=== PATIENT | female | born 1960 | race Caucasian/White ===

== ENCOUNTER 2017-09-15 10:52 | Emergency (ER) | payer MEDICAID ==
[~2017-09-15] VITALS: Ht 177.8 cm; Wt 70.0 kg
[~2017-09-15 10:52] MED LIST: HYDR-3965 PO
[2017-09-15] MEDS ORDERED: PENI500T2 PO (12:08)
[2017-09-15 12:26] VITALS: BP 131/71
== END 2017-09-15 12:27 | disposition home or self-care (01) ==
LOC: ER 10:52
DX: K08.89 Other specified disorders of teeth and supporting structures (principal); Z88.6 Allergy status to analgesic agent; Z88.1 Allergy status to other antibiotic agents
CPT/HCPCS: 99283

== ENCOUNTER 2017-11-10 08:20 | Emergency (ER) | payer MEDICAID ==
[~2017-11-10] VITALS: Ht 180.3 cm; Wt 70.0 kg
[2017-11-10] MEDS ORDERED: AMOX500C2 PO (09:47)
[2017-11-10 09:58] VITALS: BP 143/88
== END 2017-11-10 10:01 | disposition home or self-care (01) ==
LOC: ER 08:21
DX: K08.89 Other specified disorders of teeth and supporting structures (principal); R05 Cough; Z88.5 Allergy status to narcotic agent; Z88.8 Allergy status to other drugs, medicaments and biological substances; Z79.899 Other long term (current) drug therapy
CPT/HCPCS: 71046; 99284

== ENCOUNTER 2018-03-31 02:55 | Emergency (ER) | payer MEDICAID ==
[~2018-03-31] VITALS: Ht 180.3 cm; Wt 75.0 kg
[2018-03-31 02:57] VITALS: BP 140/86
[2018-03-31] MEDS ORDERED: ciprofloxacin 0.3% 2.5ml ophthalmic solution LEFTEYE SCH (03:50)
== END 2018-03-31 04:16 | disposition home or self-care (01) ==
LOC: ER 02:56
DX: H57.12 Ocular pain, left eye (principal); H53.149 Visual discomfort, unspecified; Z90.89 Acquired absence of other organs; Z88.1 Allergy status to other antibiotic agents; Z88.5 Allergy status to narcotic agent; Z79.899 Other long term (current) drug therapy
CPT/HCPCS: 99282

== ENCOUNTER 2019-07-14 22:55 | Emergency (ER) | payer MEDICAID ==
[~2019-07-14] VITALS: Ht 180.3 cm; Wt 71.2 kg
[2019-07-14] MEDS ORDERED: ciprofloxacin 0.3% 2.5ml ophthalmic solution RIGHTEYE SCH (23:20)
[2019-07-14] MEDS ORDERED: ketorolac trometh inj. 60 MG/2 ML VIAL IM ONE (23:20)
[2019-07-14] MEDS ORDERED: PRED20TA PO (23:22)
[2019-07-14 23:40] VITALS: BP 121/77
== END 2019-07-14 23:42 | disposition home or self-care (01) ==
LOC: ER 22:56
DX: M54.5 Low back pain (principal); H10.9 Unspecified conjunctivitis; Z90.89 Acquired absence of other organs; Z88.1 Allergy status to other antibiotic agents; Z79.899 Other long term (current) drug therapy; Z88.5 Allergy status to narcotic agent
CPT/HCPCS: 96372; 99283; J1885

== ENCOUNTER 2019-08-11 19:11 | Emergency (ER) | payer MEDICAID ==
[~2019-08-11] VITALS: Ht 180.3 cm; Wt 75.0 kg
[2019-08-11 19:20] VITALS: BP 145/80
[2019-08-11] MEDS ORDERED: bacitracin 15gm ointment TP ONE (19:45)
[2019-08-11] MEDS ORDERED: LIDOcaine 1% W/epiNEPHrine 1:200,000 10ml vial IJ ONE (19:45)
[2019-08-11] MEDS ORDERED: TETanus/Pertussis (Acell)/Diphther VAC/PF (Tdap-Adult) 0.5ml syringe IMVAC ONE (19:45)
[2019-08-11] MEDS ORDERED: ondansetron 4mg rapidly disintigrating tab PO ONE (20:30)
== END 2019-08-11 20:38 | disposition home or self-care (01) ==
LOC: ER 19:11
DX: S01.81XA Laceration without foreign body of other part of head, initial encounter (principal); G89.29 Other chronic pain; F10.99 Alcohol use, unspecified with unspecified alcohol-induced disorder; Z90.89 Acquired absence of other organs; Z88.1 Allergy status to other antibiotic agents; Z88.5 Allergy status to narcotic agent; Z79.899 Other long term (current) drug therapy; W14.XXXA Fall from tree, initial encounter; Y93.89 Activity, other specified; Y92.89 Other specified places as the place of occurrence of the external cause; Y99.8 Other external cause status; Y90.9 Presence of alcohol in blood, level not specified
CPT/HCPCS: 12011; 90471; 90715; 99283

== ENCOUNTER 2020-06-11 15:24 | Emergency (ER) | payer MEDICAID ==
[~2020-06-11] VITALS: Ht 180.3 cm; Wt 84.9 kg
[2020-06-11 15:48] VITALS: BP 129/106
[2020-06-11] MEDS ORDERED: proparacaine 0.5% ophthalmic drops 15ml LEFTEYE ONE (15:55)
[2020-06-11] MEDS ORDERED: PENI-88 PO (16:46)
[2020-06-11] MEDS ORDERED: HYDR-4353 PO (16:46)
== END 2020-06-11 17:41 | disposition home or self-care (01) ==
LOC: ER 15:24
DX: H57.12 Ocular pain, left eye (principal); K08.89 Other specified disorders of teeth and supporting structures; G89.29 Other chronic pain; F17.200 Nicotine dependence, unspecified, uncomplicated; Z88.1 Allergy status to other antibiotic agents; Z88.5 Allergy status to narcotic agent; Z90.89 Acquired absence of other organs
CPT/HCPCS: 99283

== ENCOUNTER 2021-04-01 01:18 | Emergency (ER) | payer MEDICAID ==
[~2021-04-01] VITALS: Ht 180.3 cm; Wt 91.2 kg
[2021-04-01 01:22] VITALS: BP 145/77
[2021-04-01] MEDS ORDERED: acetaminophen 325mg tablet PO ONE (01:25)
== END 2021-04-01 02:57 | disposition home or self-care (01) ==
LOC: ER 01:19
DX: S93.402A Sprain of unspecified ligament of left ankle, initial encounter (principal); S93.602A Unspecified sprain of left foot, initial encounter; G89.29 Other chronic pain; M54.9 Dorsalgia, unspecified; Z88.1 Allergy status to other antibiotic agents; Z88.5 Allergy status to narcotic agent; X50.0XXA Overexertion from strenuous movement or load, initial encounter; Y93.K1 Activity, walking an animal; Y92.89 Other specified places as the place of occurrence of the external cause; Y99.8 Other external cause status
CPT/HCPCS: 73610; 73630; 99284

== ENCOUNTER 2021-09-10 23:46 | Emergency (ER) | payer MEDICAID ==
[~2021-09-10] VITALS: Ht 177.8 cm; Wt 86.4 kg
[2021-09-11 00:05] VITALS: BP 138/80
== END 2021-09-11 02:46 | disposition left against medical advice (07) ==
LOC: ER 23:47
DX: Z20.822 Contact with and (suspected) exposure to COVID-19 (principal); Z53.21 Procedure and treatment not carried out due to patient leaving prior to being seen by health care provider
CPT/HCPCS: 71045; 87635; C9803

== ENCOUNTER 2022-07-30 14:12 | Emergency (ER) | payer MEDICAID ==
[~2022-07-30] VITALS: Ht 180.3 cm; Wt 90.0 kg
[2022-07-30 14:19] VITALS: BP 140/74
[2022-07-30] MEDS ORDERED: ibuprofen tablet 400 MG TABLET PO ONE (17:10)
[2022-07-30] MEDS ORDERED: ipratropium/albuterol 3ml nebule NEB ONE (17:10)
[2022-07-30] MEDS ORDERED: PRED20TA PO (17:59)
[2022-07-30] MEDS ORDERED: ALBU8HFA PO (17:59)
== END 2022-07-30 18:15 | disposition home or self-care (01) ==
LOC: ER 14:13
DX: J06.9 Acute upper respiratory infection, unspecified (principal); R06.2 Wheezing; G89.29 Other chronic pain; M54.50 Low back pain, unspecified; F17.200 Nicotine dependence, unspecified, uncomplicated; Z88.5 Allergy status to narcotic agent; Z91.041 Radiographic dye allergy status
CPT/HCPCS: 94640; 94760; 99283

== ENCOUNTER 2023-02-24 11:27 | Emergency (ER) | payer MEDICAID ==
[~2023-02-24] VITALS: Ht 180.3 cm; Wt 95.4 kg
[2023-02-24 11:41] LABS: EOSINOPHILS # (AUTO) 0.2 X10'3 (0-0.9); MEAN CORPUSCULAR HGB CONC 33.4 g/dL (33.0-36.5); MEAN PLATELET VOLUME 6.9 FL (7.4-10.4); RED BLOOD COUNT 4.22 X10'6 (4.20-5.60)
[2023-02-24 11:43] LABS: BASOPHILS # (AUTO) 0.1 X10'3 (0-0.2); BASOPHILS % (AUTO) 0.8 % (0-1); EOSINOPHILS % (AUTO) 2.8 % (0-6); HEMATOCRIT 39.8 % (35.0-45.0); HEMOGLOBIN 13.3 g/dl (12.0-16.0); LYMPHOCYTES # (AUTO) 1.8 X10'3 (1.1-4.8); LYMPHOCYTES % (AUTO) 27.8 % (21-51); MEAN CORPUSCULAR HEMOGLOBIN 31.5 PG (27.0-31.0); MEAN CORPUSCULAR VOLUME 94.3 FL (78-98); MONOCYTES # (AUTO) 0.5 X10'3 (0-0.9); NEUTROPHILS # (AUTO) 3.9 X10'3 (1.8-7.7); NEUTROPHILS % (AUTO) 60.6 % (42-75); PLATELET COUNT 268 X10'3 (140-440); RED CELL DISTRIBUTION WIDTH 13.3 % (11.5-14.5); WHITE BLOOD COUNT 6.5 X10'3 (4.5-11.0)
[2023-02-24 11:55] LABS: ALANINE AMINOTRANSFERASE 17 U/L (12-78); ALBUMIN 3.4 G/DL (3.4-5.0); ALBUMIN/GLOBULIN RATIO 1.1 (1.1-1.5); ALKALINE PHOSPHATASE 91 IU/L (46-116); ANION GAP 3 (8-16); ASPARTATE AMINO TRANSFERASE 16 U/L (10-37); BILIRUBIN,TOTAL 1.2 MG/DL (0.1-1.0); BLOOD UREA NITROGEN 13 MG/DL (7-18); BUN/CREATININE RATIO 13.7 (10.0-20.0); CALCIUM 8.9 MG/DL (8.5-10.1); CHLORIDE 109 MMOL/L (99-107); CREATININE 0.95 MG/DL (0.40-0.90); GLUCOSE 92 MG/DL (70-104); POTASSIUM 4.2 MMOL/L (3.5-5.1); SODIUM 144 MMOL/L (135-145); TOTAL CARBON DIOXIDE 31.6 MMOL/L (24-32); TOTAL PROTEIN 6.6 G/DL (6.4-8.2); eGFR 60 ML/MIN
[2023-02-24 14:54] VITALS: BP 144/77
== END 2023-02-24 15:38 | disposition home or self-care (01) ==
LOC: ER 11:27
DX: R00.2 Palpitations (principal); F41.9 Anxiety disorder, unspecified; G89.29 Other chronic pain; M54.9 Dorsalgia, unspecified; I10 Essential (primary) hypertension; F17.200 Nicotine dependence, unspecified, uncomplicated; Z88.1 Allergy status to other antibiotic agents; Z88.5 Allergy status to narcotic agent; Z79.899 Other long term (current) drug therapy; Z90.49 Acquired absence of other specified parts of digestive tract
CPT/HCPCS: 36415; 71045; 80053; 83880; 84484; 85025; 93005; 99285

== ENCOUNTER 2023-05-07 09:38 | Emergency (ER) | payer MEDICAID ==
[~2023-05-07] VITALS: Ht 180.3 cm; Wt 88.6 kg
[2023-05-07 09:51] VITALS: BP 133/74; PULSE 83; RESP 18; TEMP 98.1; O2SAT 95
[2023-05-07] MEDS ORDERED: erythromycin ophthalmic ointment 1gm tube LEFTEYE ONE (13:30)
[2023-05-07] MEDS ORDERED: ERYT1OIN6 EACHEYE (13:40)
== END 2023-05-07 13:59 | disposition home or self-care (01) ==
LOC: ER 09:38
DX: S05.01XA Injury of conjunctiva and corneal abrasion without foreign body, right eye, initial encounter (principal); I10 Essential (primary) hypertension; Z91.041 Radiographic dye allergy status; Z79.899 Other long term (current) drug therapy; X58.XXXA Exposure to other specified factors, initial encounter; Y93.89 Activity, other specified; Y92.89 Other specified places as the place of occurrence of the external cause; Y99.8 Other external cause status
CPT/HCPCS: 99283

== ENCOUNTER 2023-05-11 10:18 | Emergency (ER) | payer MEDICAID ==
[~2023-05-11] VITALS: Ht 180.3 cm; Wt 89.6 kg
[~2023-05-11 10:18] MED LIST changes: +ERYT1OIN6 EACHEYE
[2023-05-11 10:20] VITALS: TEMP 97.9
[2023-05-11 10:38] LABS: BASOPHILS % (AUTO) 0.4 % (0-1); EOSINOPHILS # (AUTO) 0.2 X10'3 (0-0.9); EOSINOPHILS % (AUTO) 2.8 % (0-6); HEMATOCRIT 44.2 % (35.0-45.0); HEMOGLOBIN 14.4 g/dl (12.0-16.0); LYMPHOCYTES # (AUTO) 1.7 X10'3 (1.1-4.8); LYMPHOCYTES % (AUTO) 19.3 % (21-51); MEAN CORPUSCULAR HEMOGLOBIN 30.9 PG (27.0-31.0); MEAN CORPUSCULAR HGB CONC 32.7 g/dL (33.0-36.5); MEAN CORPUSCULAR VOLUME 94.5 FL (78-98); MONOCYTES # (AUTO) 0.6 X10'3 (0-0.9); MONOCYTES % (AUTO) 7.4 % (2-12); NEUTROPHILS % (AUTO) 70.1 % (42-75); PLATELET COUNT 322 X10'3 (140-440); RED BLOOD COUNT 4.68 X10'6 (4.20-5.60); RED CELL DISTRIBUTION WIDTH 13.2 % (11.5-14.5); WHITE BLOOD COUNT 8.6 X10'3 (4.5-11.0)
[2023-05-11 10:58] LABS: ALANINE AMINOTRANSFERASE 19 U/L (12-78); ALBUMIN 3.6 G/DL (3.4-5.0); ALKALINE PHOSPHATASE 91 IU/L (46-116); ANION GAP 6 (8-16); ASPARTATE AMINO TRANSFERASE 14 U/L (10-37); BILIRUBIN,TOTAL 0.8 MG/DL (0.1-1.0); BLOOD UREA NITROGEN 6 MG/DL (7-18); BUN/CREATININE RATIO 7.1 (10.0-20.0); CALCIUM 9.4 MG/DL (8.5-10.1); CHLORIDE 105 MMOL/L (99-107); CREATININE 0.84 MG/DL (0.40-0.90); GLUCOSE 110 MG/DL (70-104); POTASSIUM 4.6 MMOL/L (3.5-5.1); SODIUM 142 MMOL/L (135-145); TOTAL CARBON DIOXIDE 31.2 MMOL/L (24-32); TOTAL PROTEIN 7.3 G/DL (6.4-8.2); eCRCL 79 ML/MIN; eGFR 69 ML/MIN
[2023-05-11 11:08] LABS: PRO BRAIN NATRIURETIC PEPTIDE 143 PG/ML (0-125)
[2023-05-11] MEDS ORDERED: ondansetron/PF 4mg/2ml inj IV ONE (13:10)
[2023-05-11] MEDS ORDERED: ringers solution, lacted 1,000 ML IV ONE (13:10)
--- NOTE | 2023-05-11 13:17 | NUR ---
Pt off to CT via gurney. Medicated with Ondansetron prior.
[2023-05-11 15:14] VITALS: BP 148/66; PULSE 57; RESP 18; O2SAT 99
== END 2023-05-11 15:22 | disposition home or self-care (01) ==
LOC: ER 10:19
DX: R42 Dizziness and giddiness (principal); R55 Syncope and collapse; I10 Essential (primary) hypertension; F17.200 Nicotine dependence, unspecified, uncomplicated; Z91.041 Radiographic dye allergy status; Z88.8 Allergy status to other drugs, medicaments and biological substances; Z79.899 Other long term (current) drug therapy
CPT/HCPCS: 36415; 70450; 71045; 80053; 83880; 84484; 85025; 93005; 96361; 96374; 99285; J2405; J7120

== ENCOUNTER 2024-01-11 01:54 | Emergency (ER) | payer MEDICAID ==
[~2024-01-11] VITALS: Ht 180.3 cm; Wt 89.0 kg
[~2024-01-11 01:54] MED LIST changes: -ERYT1OIN6 EACHEYE
[2024-01-11 03:04] LABS: BASOPHILS # (AUTO) 0.1 X10'3 (0-0.2); BASOPHILS % (AUTO) 1.4 % (0-1); EOSINOPHILS # (AUTO) 0.2 X10'3 (0-0.9); EOSINOPHILS % (AUTO) 2.7 % (0-6); HEMOGLOBIN 12.7 g/dl (12.0-16.0); LYMPHOCYTES # (AUTO) 0.4 X10'3 (1.1-4.8); MEAN CORPUSCULAR HEMOGLOBIN 31.5 PG (27.0-31.0); MEAN CORPUSCULAR HGB CONC 33.5 g/dL (33.0-36.5); MEAN CORPUSCULAR VOLUME 94.2 FL (78-98); MEAN PLATELET VOLUME 7.4 FL (7.4-10.4); MONOCYTES # (AUTO) 0.5 X10'3 (0-0.9); MONOCYTES % (AUTO) 5.8 % (2-12); NEUTROPHILS # (AUTO) 7.2 X10'3 (1.8-7.7); NEUTROPHILS % (AUTO) 85.1 % (42-75); PLATELET COUNT 240 X10'3 (140-440); RED BLOOD COUNT 4.03 X10'6 (4.20-5.60); RED CELL DISTRIBUTION WIDTH 13.2 % (11.5-14.5); WHITE BLOOD COUNT 8.4 X10'3 (4.5-11.0)
[2024-01-11 03:24] LABS: PRO BRAIN NATRIURETIC PEPTIDE 137 PG/ML (0-125)
[2024-01-11] MEDS: normal saline 1000ML IV soln IVB ONE (03:43)
[2024-01-11] MEDS: CefTRIAXone/D5W-Rocephin 1gm 50 ML IV ONE (03:43)
[2024-01-11] MEDS: methylPREDNISolone sod succ 125mg/2ml vial IV ONE (03:43)
[2024-01-11] MEDS: ipratropium 0.5 MG/2.5ML nebule IH ONE (04:02)
[2024-01-11] MEDS: albuterol 2.5 MG/3 ML nebule CONTNEB PRN (04:02)
[2024-01-11 04:03] VITALS: PULSE 76; RESP 25; O2SAT 95
[2024-01-11 05:11] VITALS: PULSE 78; RESP 13; O2SAT 96
[2024-01-11] MEDS ORDERED: ALBU8HFA INH (05:20)
[2024-01-11] MEDS ORDERED: AMOX-117 PO (05:20)
[2024-01-11] MEDS ORDERED: PRED50TA PO (05:20)
[2024-01-11 05:33] VITALS: BP 123/65; PULSE 75; RESP 18; TEMP 99; O2SAT 95
== END 2024-01-11 05:35 | disposition home or self-care (01) ==
LOC: ER 01:54
DX: J44.1 Chronic obstructive pulmonary disease with (acute) exacerbation (principal); J98.01 Acute bronchospasm; I10 Essential (primary) hypertension; G89.29 Other chronic pain; M54.9 Dorsalgia, unspecified; Z88.8 Allergy status to other drugs, medicaments and biological substances; Z79.899 Other long term (current) drug therapy; Z72.89 Other problems related to lifestyle
CPT/HCPCS: 36415; 71045; 83605; 83880; 84145; 84484; 85025; 87040; 93005; 94644; 96365; 96366; 96375; 99285; J0696; J2919; J7030; 94640; 94760